=== PATIENT | female | born 1995 | race American Indian/Alaskan Native ===

== ENCOUNTER 2018-01-22 04:27 | Emergency (ER) | payer MEDICAID ==
[2018-01-22 04:34] VITALS: BP 139/79
--- NOTE | 2018-01-22 07:20 | Emergency Department Report ---
HPI - General Chief Complaint: Sore Throat Time Seen by Provider: 01/22/18 07:18 - HPI HPI: Patient reports bumped her left thigh and sore throat. She reports chills but denies any fever. She says she's been taking [id number] medication but she is still having sore throat 7 out of 10.. Pain to left eye lid only with touching. Denies any trauma. Denies any nausea or vomiting. Denies any drooling. Denies any cough. Denies any nasal congestion or drainage. Pain is only with swallowing. Denies any difficulty breathing. Denies any toothache. This started 3 days ago and not getting better. Denies any nausea or vomiting. ED Past Medical Hx - Past Medical History Previous Medical History?: No - Surgical History Past Surgical History?: No - Family History Family history: no significant - Social History Smoking Status: Never Smoker Substance Use Type: None - Medications Home Medications: Home Medications Medication Instructions Recorded Confirmed Last Taken Type Gentamicin 0.3% Ophth Oint 1 applicatio OP Q8H 7 Days #1 tube 01/22/18 Unknown Rx Ibuprofen [Motrin] 600 mg PO Q8H PRN #12 tablet 01/22/18 Unknown Rx Penicillin V Potassium 500 mg PO Q8H 10 Days #30 tablet 01/22/18 Unknown Rx ED Review of Systems ROS: Stated complaint: EYE PAIN, SORE THROAT Other details as noted in HPI Comment: All other systems reviewed and negative Constitutional: chills Eyes: other (pain and bump to the left eyelid). denies: eye discharge ENT: throat pain. denies: ear pain, congestion Respiratory: no symptoms reported Cardiovascular: denies: chest pain, palpitations, dyspnea on exertion, orthopnea , edema, syncope, paroxysmal nocturnal dyspnea Gastrointestinal: denies: abdominal pain, nausea, vomiting, diarrhea, constipation, hematemesis, melena, hematochezia Genitourinary: denies: dysuria, hematuria, abnormal menses Musculoskeletal: denies: back pain, joint swelling, arthralgia, myalgia Skin: denies: rash Neurological: denies: headache, weakness, numbness, paresthesias, confusion, abnormal gait, vertigo Physical Exam - Physical Exam Vital Signs: Vital Signs 01/22/18 04:31 Temperature 98.5 F Pulse Rate 95 H Respiratory 17 Rate Blood Pressure 139/79 O2 Sat by Pulse 99 Oximetry General: This is a 22-year-old female well-nourished well-developed acute distress. Physical Exam: Head: Normocephalic, atraumatic, no abrasion, no bruising and no contusion. Eyes: Biateral pupils equal and reactive to light, bilateral EOM intact.. Bilateral conjunctival and sclera without injection, normal accommodation. Left eyelid with minimal swelling and small indurated, nonfluctuant area to Center. No drainage noted. Tender to palpate Mouth: Moist, positive pharyngeal exudate and erythema. No peritonsillar abscesses. Uvula is midline and oral airways patent. Ears: Bilateral TM pearly golden. Bilateral EAC without any redness swelling or drainage. No mastoid bone tenderness Nose: Bilateral Maxillary and frontal sinuses non-tender to palpate. Neck: Supple, positive Cervical adenopathy, full range of motion and no C-spine tenderness. No swelling or tracheal deviation normal reflexes Cardiovascular: S1, S2. Regular rate and rhythm. No murmur. Capillary refill is less then 3 seconds. Lungs: Clear to auscultate bilaterally. No rhonchi, wheezes or rales. No chest wall tenderness. No chest contusion. No bruising to chest. MSK: Strength 5/5 in all extremities. No joint deformity or crepitus. Normal inspection. Full range of motion to all extremities. No laceration, abrasion or ecchymotic area noted. Patient able to fully flex and extend bilateral knees without any difficulties. Bilateral knees nontender to palpate. Abdomen: Non-tender to palpate in all quadrants, no guarding or rebound tenderness, positive bowel sounds in all quadrants. No CVA tenderness. No hernia, bruit or mass. No rigidity or distention. Extremities: No clubbing, cyanosis or edema. +2 pulses. No neurovascular compromise Skin: Clean, dry and intact. No rash or lesions. Psych: Normal mood and behavior ED Course Vital Signs 01/22/18 04:31 Temperature 98.5 F Pulse Rate 95 H Respiratory 17 Rate Blood Pressure 139/79 O2 Sat by Pulse 99 Oximetry - Reevaluation(s) Reevaluation #1: 01/22/18 08:50 She given Motrin 800 mg by mouth for sore throats. ED Medical Decision Making - Lab Data Rapid strep negative and culture pending - Medical Decision Making ED course: She presented with sore throats and left upper eyelid pain. Physical findings for Stye to left upper eyelid and exudative pharyngitis, and large anterior cervical lymph nodes and report of chills. Based on [facility] criteria, I will treat patient for exudative pharyngitis even though her rapid strep test is negative. Cultures are still pending I discussed this with patient and she is in agreement. Patient and receive Motrin 800 mg by mouth in emergency room for pain. She is able to tolerate oral liquids without any drooling. Discharge home with her family in stable condition with prescription for Motrin, gentamicin ophthalmic ointment and Penicillin V. Critical care attestation.: If time is entered above; I have spent that time in minutes in the direct care of this critically ill patient, excluding procedure time. ED Disposition Clinical Impression: Sore throat, Exudative pharyngitis Hordeolum of left eye Qualifiers: Hordeolum type: externum Eyelid: upper Qualified Code(s): H00.014 - Hordeolum externum left upper eyelid Disposition: DC-01 TO HOME OR SELFCARE Is pt being admited?: No Does the pt Need Aspirin: No Condition: Stable Instructions: Pharyngitis (ED), Stye (ED) Additional Instructions: Gargle with warm salt water Take Motrin for sore throat and/or fever Take antibiotic for strep Please apply antibiotic ointment to left eyelid 3 times a day 7 days. Apply warm compresses to left upper eyelid 3 times a day for 7 days and after each warm compress applied antibiotic ointment. Prescriptions: Gentamicin 0.3% Ophth Oint 1 applicatio OP Q8H 7 Days #1 tube Ibuprofen [Motrin] 600 mg PO Q8H PRN #12 tablet PRN Reason: Pain Penicillin V Potassium 500 mg PO Q8H 10 Days #30 tablet Referrals: [facility] [Outside] - 3-5 Days Forms: Work/School Release Form(ED)
[2018-01-22] MEDS ORDERED: MOTRIN PO ONE (07:26)
== END 2018-01-22 09:04 | disposition home or self-care (01) ==
LOC: ED 04:27
DX: H00.014 Hordeolum externum left upper eyelid (principal); J02.9 Acute pharyngitis, unspecified
CPT/HCPCS: 87116; 87430